=== PATIENT | female | born 1990 | race Caucasian/White ===

== ENCOUNTER 2020-09-16 16:32 | Emergency (ER) | payer BC, SELFPAY ==
[2020-09-16 16:35] VITALS: BP 165/86; PULSE 62; RESP 16; TEMP 37.1; O2SAT 100
[2020-09-16 16:51] LABS: Basophils Absolute Auto 0.1 K/mm3 (0.0-0.1); Basophils Percent Auto 0.8 % (0.2-1.2); Eosinophils Absolute Auto 0.1 K/mm3 (0-0.3); Eosinophils Percent Auto 0.7 % (0-4.4); Hematocrit 42.9 % (37.0-47.0); Hemoglobin 13.9 g/dL (12.0-15.0); Immature Granulocyte Absolute 0.02 K/mm3 (0.00-0.031); Immature Granulocyte Percent A 0.3 % (0-0.5); Lymphocytes Absolute Auto 2.06 K/mm3 (0.9-3.2); Lymphocytes Percent Auto 27.1 % (18.3-44.2); Mean Corpuscular HGB Conc 32.4 g/dl (32-36); Mean Corpuscular Hemoglobin 29.3 pg (26-34); Mean Corpuscular Volume 90.5 fl (80-100); Mean Platelet Volume 11.3 fl (7.4-10.4); Monocytes Absolute Auto 0.8 K/mm3 (0.1-0.6); Neutrophils Absolute Auto 4.7 K/mm3 (1.3-6.7); Neutrophils Percent Auto 61.1 % (45.5-73.1); Platelet Count Result 228 k/mm3 (150-375); Red Blood Count 4.74 M/mm3 (4.2-5.4); Red Cell Distribution Width 13.2 % (11.5-14.5); White Blood Count 7.6 K/mm3 (4.5-10.0)
[2020-09-16 17:01] LABS: Ethanol < 10 mg/dL (<10)
[2020-09-16 17:02] LABS: Alanine Aminotransferase 16 U/L (4-35); Albumin Level 4.6 g/dL (3.5-5.1); Alkaline Phosphatase 68 U/L (38-126); Anion Gap 10 mmol/L (8-16); Aspartate Amino Transferase 26 U/L (14-36); Bilirubin,Total 0.4 mg/dL (0.2-1.3); Blood Urea Nitrogen 15 mg/dL (7-17); Calcium 10.2 mg/dL (8.4-10.2); Carbon Dioxide 26 mmol/L (22-30); Chloride 104 mmol/L (98-107); Estimated CRCL calculation 106 ml/min; Estimated Glomerular Filt Rate > 60; Glucose 99 mg/dL (65-105); Potassium 4.3 mmol/L (3.4-5.0); Sodium 140 mmol/L (137-145)
[2020-09-16 17:06] LABS: Add Urine Microscopic? NO; Appearance Urine Clear (Clear); Bilirubin Urine Negative (Negative); Blood Urine Negative (Negative); Color Urine Colorless (Yellow); Glucose Urine UA Negative (Negative); Ketones Urine Negative (Negative); Leukocyte Esterase Ur Negative LEU/UL (Negative); Nitrate Urine Negative (Negative); Protein Urine Negative (Negative); Specific Grav Ur 1.008 (1.001-1.035); Urobilinogen Urine Negative mg/dL (<2.0)
[2020-09-16 17:21] LABS: Amphetamine Screen Urine Negative (Negative); Barbiturate Screen Urine Negative (Negative); Benzodiazepines Screen Urine Negative (Negative); Cannabinoid Screen Urine Negative (Negative); Cocaine Screen Urine Negative (Negative); Methadone Screen Urine Negative (Negative); Opiate Screen Urine Negative (Negative); Phencyclidine Screen Urine Negative (Negative)
[2020-09-16 17:32] LABS: Thyroid Stimulating Hormone 0.734 uIU/mL (0.465-4.680)
[2020-09-16 17:59] LABS: Pregnancy On Board Control Positive; Urine Pregnancy Test Negative
--- NOTE | 2020-09-16 19:18 | PC.NURSE ---
Kaley from Crisis in room with patient.
--- NOTE | 2020-09-16 19:30 | PC.NURSE ---
Crisis with pt at this time.
--- NOTE | 2020-09-16 19:45 | PC.NURSE ---
Confirmed with MD that 1:1 sitter should continue, pt denies suicidal/homicidal thoughts or intentions at this time.
[2020-09-16 20:47] LABS: EDCOVIDSCREEN Negative (Negative)
--- NOTE | 2020-09-16 21:00 | PC.NURSE ---
Pt allowed supervised personal phone calls on speaker per Charge due to needing to contact place of employment and guardian for child. Phone returned for safe keeping in locker.
[2020-09-16 21:54] VITALS: BP 112/69; PULSE 64; RESP 18; O2SAT 100
[2020-09-16] MEDS: LORazepam (*CRX) 1 MG TABLET PO (21:55)
--- NOTE | 2020-09-16 23:04 | ED.PSYCH ---
HPI - Psych General Chief Complaint: Psychiatric Symptoms <Freddie Meyer MD - Last Filed: 09/16/20 23:08> Stated Complaint: SI <Ferddie Meyer MD - Last Filed: 09/16/20 23:08> Time Seen by Provider: 09/16/20 16:53 <Freddie Meyer MD - Last Filed: 09/16/20 23:08> Source: patient <Freddie Meyer MD - Last Filed: 09/16/20 23:08> Mode of arrival: ambulatory <Freddie Meyer MD - Last Filed: 09/16/20 23:08> Limitations: no limitations <Freddie Meyer MD - Last Filed: 09/16/20 23:08> History of Present Illness HPI Narrative: 30-year-old with a history of depression here with complaints of suicidal ideation for past few days however since this morning she states that she is feeling extremely depressed and had more thoughts. She states that she has been off her antidepressants for last 2 months as her psychiatrist is retired. She presently denies any medical complaints. <Freddie Meyer MD - Last Filed: 09/16/20 23:08> MD complaint: suicidal ideation and feels depressed <Freddie Meyer MD - Last Filed: 09/16/20 23:08> Onset (ago): week(s) <Freddie Meyer MD - Last Filed: 09/16/20 23:08> Duration: constant <Freddie Meyer MD - Last Filed: 09/16/20 23:08> History of same: Yes <Freddie Meyer MD - Last Filed: 09/16/20 23:08> Relieving factors: none <Freddie Meyer MD - Last Filed: 09/16/20 23:08> Exacerbating factors: none <Freddie Meyer MD - Last Filed: 09/16/20 23:08> Context: significant life stressor <Freddie Meyer MD - Last Filed: 09/16/20 23:08> Associated psychiatric symptoms: depression <Freddie Meyer MD - Last Filed: 09/16/20 23:08> Associated symptoms: denies other symptoms <Freddie Meyer MD - Last Filed: 09/16/20 23:08> Related Data Allergies/Adverse Reactions: Allergies Allergy/AdvReac Type Severity Reaction Status Date / Time No Known Allergies Allergy Verified 09/16/20 18:18 <Freddie Meyer MD - Last Filed: 09/16/20 23:08> Review of Systems Review of Systems: All systems reviewed & are unremarkable except as noted in HPI and below <Freddie Meyer MD - Last Filed: 09/16/20 23:08> Constitutional: Constitutional: Reports no additional constitutional complaints <Freddie Meyer MD - Last Filed: 09/16/20 23:08> Eyes: Eyes: Reports no additional eye complaints <Freddie Meyer MD - Last Filed: 09/16/20 23:08> ENT: Reports system reviewed and no additional complaints, except as documented <Freddie Meyer MD - Last Filed: 09/16/20 23:08> Respiratory: Respiratory: Reports no additional respiratory complaints <Freddie Meyer MD - Last Filed: 09/16/20 23:08> Gastrointestinal: Gastrointestinal: Reports no additional gastrointestinal complaints <Freddie Meyer MD - Last Filed: 09/16/20 23:08> Musculoskeletal: Musculoskeletal: Reports no additional musculoskeletal complaints <Freddie Meyer MD - Last Filed: 09/16/20 23:08> Neurologic: Reports system reviewed and no additional complaints, except as documented <Freddie Meyer MD - Last Filed: 09/16/20 23:08> Psychiatric: Psychiatric: Reports as per HPI <Freddie Meyer MD - Last Filed: 09/16/20 23:08> [facility] Social History Social History: Social History Substance use type: does not use <Freddie Meyer MD - Last Filed: 09/16/20 23:08> Exam Narrative: Exam Narrative: GENERAL: Well-appearing, well-nourished, and in no acute distress. HEAD: Normocephalic, atraumatic. EYES: PERRLA and EOMI. NECK: Supple. CHEST: Clear to auscultation. No respiratory distress. HEART: Regular rate and rhythm. No murmur heard. Normal peripheral pulses. ABDOMEN: Soft, nontender, nondistended, normal active bowel sounds. EXTREMITIES: Normal range of motion. No edema. SKIN: Warm, dry, no rash. NEURO: No focal deficits. Alert and oriented x3. PSYCH: Flat affect, depressed mood <Freddie Ka
--- NOTE | 2020-09-16 23:36 | PC.NURSE ---
Demetrice from [facility] called about placement of pt. This RN has not received any updates for placement at this time. Demetrice reports that she will make calls first thing in the morning.
[2020-09-17 02:54] VITALS: BP 103/59; PULSE 61; RESP 16; TEMP 36.4; O2SAT 100
--- NOTE | 2020-09-17 07:15 | PC.NURSE ---
Pt is laying in bed. Sitter is at bedside. Room is safe. Inform pt that [facility] is trying to find placement for pt. Pt states that is ok and asked if she could shower. Informed charge nurse of pts request.
[2020-09-17 07:32] VITALS: BP 108/71; PULSE 72; RESP 18; O2SAT 100
--- NOTE | 2020-09-17 08:21 | PC.NURSE ---
Keysha from [facility] called to check on placement for pt. States she will make some calls.
--- NOTE | 2020-09-17 08:30 | PC.NURSE ---
Pt taken to room to shower. Pt has female tech and security with her.
--- NOTE | 2020-09-17 08:46 | PC.NURSE ---
Faxed requested information to [facility] attn :Rosa Chopra at [place]
--- NOTE | 2020-09-17 08:56 | PC.NURSE ---
Spoke with Q from [facility] in regards to pt information .
[2020-09-17 11:00] VITALS: BP 113/80; PULSE 75; O2SAT 100
== END 2020-09-17 11:26 ==
PROVIDERS: Emergency Medicine; Family Medicine; Emergency Provider Emergency Medicine
DX: F33.2 Major depressive disorder, recurrent severe without psychotic features (principal); Z20.822 Contact with and (suspected) exposure to COVID-19
CPT/HCPCS: 36415; 80053; 80307; 81003; 81025; 84443; 85025; 87426; 99285; A9270; C9803

== ENCOUNTER 2021-02-22 10:37 | Emergency (ER) | payer BC, SELFPAY ==
[2021-02-22 11:03] VITALS: BP 128/16; PULSE 73; RESP 16; TEMP 36.5; O2SAT 100
--- NOTE | 2021-02-22 11:56 | ED.URI ---
HPI - URI/Sore Throat General Chief Complaint: Upper Respiratory Infection Stated Complaint: Sore Throat,Bilateral Ear Pain Time Seen by Provider: 02/22/21 11:56 Source: patient Mode of arrival: ambulatory Limitations: no limitations History of Present Illness HPI Narrative: Hollie Wong is a 30 yo female with PMH of migraine who comes to [facility] with complaints of sore throat bilateral ears and swelling around throat difficulty swallowing started on Monday. She has had subjective fever where she is feeling chilled, wearing hoodies Related Data Allergies Allergy/AdvReac Type Severity Reaction Status Date / Time No Known Allergies Allergy Verified 02/22/21 11:14 Review of Systems Review of Systems: CONSTITUTIONAL: Denies fever, chills, sweats. EYES: Denies visual changes, redness, discharge. ENT: Denies rhinorrhea, has congestion, has sore throat, has bilateral otalgia. CARDIOVASCULAR: Denies chest pain, palpitations, edema. RESPIRATORY: Denies dyspnea, wheezing, mild dry cough GASTROINTESTINAL: Denies abdominal pain, nausea, vomiting, diarrhea. GENITOURINARY: Denies dysuria, hematuria, abnormal discharge SKIN: Denies rash or itching. NEUROLOGIC: Denies numbness, or focal weakness. PSYCHIATRIC: Denies anxiety or depression. [facility] Past Medical History Medical History Migraine Social History Social History (Updated 02/22/21 @ 12:05 by Wendy Aviles CNP) Smoking status: Former smoker Alcohol intake: current Substance use type: does not use Comments At time of signature, I agree with nursing past medical, surgical, social and family history. There is no relevant family history pertinent to the presenting complaint. Exam Narrative: GENERAL: This is a well-nourished, well-developed patient, in mild distress. HEAD: normocephalic, atraumatic. EYES: PERRL. Sclera clear/white. Vision is grossly intact. EARS: External ears normal, auditory canals erythema with mild edema and without drainage, TMs normal without perforation. Hearing grossly intact. NOSE: External nose normal without nasal discharge, nares with redness has rhinorrhea. THROAT: Mucous membranes moist, posterior pharynx erythema; bilateral submandibular lymph node swelling NECK: Neck supple, CARDIOVASCULAR: Regular rate and rhythm without murmurs, gallops, or rubs. RESPIRATORY: Clear to auscultation. Breath sounds equal bilaterally. No wheezes, rales, or rhonchi. GASTROINTESTINAL: Abdomen soft, SKIN: warm, intact with no suspicious lesions or rash, good texture and turgor. NEURO: awake, alert, and oriented to person, place and time. There were no obvious focal neurologic abnormalities. Steady gait EXTREMITIES: Normal range of motion. BACK: Nontender without deformity Course Course Emergency Course: Patient here complaining of cough bilateral ear pain and throat pain with swelling under her chin this started last Monday She was swab for strep was negative but she has bilateral submandibular lymph node at edema as well as 2+ edema of tonsils Start amoxicillin 875 mg twice daily and prednisone 40 mg x 5 days will continue to take [id number] cough medicine Vital Signs Vital signs: Vital Signs Temperature 97.7 F 02/22/21 11:03 Pulse Rate 73 02/22/21 11:03 Respiratory Rate 16 02/22/21 11:03 Blood Pressure 128/16 L 02/22/21 11:03 Pulse Oximetry 100 02/22/21 11:03 Temperature 97.7 F 02/22/21 11:03 Pulse Rate 73 02/22/21 11:03 Respiratory Rate 16 02/22/21 11:03 Blood Pressure 128/16 L 02/22/21 11:03 Pulse Oximetry 100 02/22/21 11:03 MDM - URI/Sore Throat Differential Diagnosis Differential diagnosis: Likely upper respiratory infection, otitis media, sinusitis, viral infection, bronchitis, pharyngitis and other Lab Data Labs: Strep Screen Presumptive Negative *(Reference Range: Negative)*
== END 2021-02-22 12:12 | disposition home or self-care (01) ==
PROVIDERS: Emergency Provider Nurse Practitioner
DX: J02.9 Acute pharyngitis, unspecified (principal); R59.0 Localized enlarged lymph nodes; Z87.891 Personal history of nicotine dependence
CPT/HCPCS: 87081; 87880; 99213; G0463

== ENCOUNTER 2023-05-02 09:07 | Emergency (ER) | payer OTHER, SELFPAY ==
[2023-05-02 09:23] VITALS: BP 126/69; PULSE 89; RESP 16; TEMP 36.4; O2SAT 100
--- NOTE | 2023-05-02 09:31 | ED.GENADULT ---
HPI - General Adult General Chief complaint: Upper Respiratory Infection Stated complaint: Swollen Throat and Trouble Breathing Source: patient, RN notes reviewed and old records reviewed Mode of arrival: ambulatory Limitations: no limitations History of Present Illness HPI narrative: 32-year-old female presents to [facility] with complaint of sore throat, swollen tonsils, difficulty swallowing, bilateral ear pressure that started 2 days ago. Patient states has been running fevers today. Patient denies cough, congestion, shortness of breath. Related Data Home Medications Medication Instructions Recorded Confirmed rimegepant 75 mg disintegrating 75 mg PO ONCE PRN Migraines 08/25/22 05/02/23 tablet (Nurtec ODT) atogepant 60 mg tablet (Qulipta) 60 mg PO DAILY 05/02/23 05/02/23 atomoxetine 60 mg capsule 60 mg PO DAILY 05/02/23 05/02/23 (Strattera) cetirizine 10 mg tablet 10 mg PO DAILY 05/02/23 05/02/23 ketorolac 10 mg tablet 10 mg PO DAILY 05/02/23 05/02/23 Allergies Allergy/AdvReac Type Severity Reaction Status Date / Time coconut Allergy Severe Swelling Verified 05/02/23 09:22 of Lip/Tongue/Throat Review of Systems Constitutional: Constitutional: Reports no additional constitutional complaints, Denies body ache(s), Denies chills, Denies fatigue, Reports fever(s) and Denies headache(s) Eyes: Eyes: Reports no additional eye complaints and Denies blurry vision ENT: Reports system reviewed and no additional complaints, except as documented, Denies vertigo, Denies dizziness, Denies ear discharge, Denies otalgia, Denies facial pain, Denies headache(s), Denies nasal congestion, Denies nasal discharge, Reports odynophagia, Denies sinus pain, Denies sinus pressure and Reports sore throat Cardiovascular: Cardiovascular: Reports no additional cardiovascular complaints, Denies chest pain, Denies chest pain at rest, Denies rapid heart rate and Denies dyspnea Respiratory: Respiratory: Reports no additional respiratory complaints, Denies chest congestion, Denies cough, Denies pain on inspiration, Denies pain with cough and Denies dyspnea Gastrointestinal: Gastrointestinal: Denies abdominal pain, Denies diarrhea, Denies nausea and Denies vomiting Integumentary/Breasts: Skin/Breast: Denies rash Neurologic: Reports system reviewed and no additional complaints, except as documented, Denies vertigo, Denies dizziness and Denies headache(s) Endocrine: Endocrine: Denies fatigue PMFSH Past Medical History Medical History Colonoscopy planned Migraine Social History Social History Smoking packs per day: 0 Smoking cigarettes per day: 0.0 Years smoked: 0 Smoking pack-years: 0.00 Smoking status: Former smoker Second hand tobacco smoke exposure: No Alcohol intake: current Alcohol use details: occassionally Substance use: never Substance use type: does not use Do You Feel Safe in your Home?: Yes Lack of Transportation: No Lack of Food: Sometimes True Current Housing: I Have Housing Concerned About Future Housing: No Difficulty Paying Gas/Electric Bills: No Difficulty Paying for Meds: No Currently Unemployed: No Education: Master's Degree or Higher Difficulty w/ Childcare or Family Care: No Living arrangements: with family Gender identity (if verbalized by the patient): Female Comments At the time of my signature, I reviewed and agree with the nursing past medical, surgical, social, and family history. There is no relevant family history pertinent to the patient complaint. Exam Const: General: cooperative, healthy appearing, no acute distress and well nourished Nutritional Appearance: well nourished Orientation/consciousness: patient oriented x3 Limitations: no limitations HENMT: Head: normal to inspection and normocephalic Ears: external ears normal, TM's no
== END 2023-05-02 09:52 | disposition home or self-care (01) ==
PROVIDERS: Emergency Provider Registered Nurse; PCP Internal Medicine
DX: J02.0 Streptococcal pharyngitis (principal)
CPT/HCPCS: 87880; 99213; G0463